=== PATIENT | female | born 1975 | race African-American/Black ===

== ENCOUNTER 2023-08-07 17:34 | Emergency (ER) | payer BC ==
[2023-08-07 17:45] VITALS: BP 135/61; PULSE 84; RESP 18; TEMP 98.6; BMI 32.8
[2023-08-07 19:34] LABS: BASO % 0.6 % (0-2.0); EOS % 3.3 % (0-4.5); HEMATOCRIT 40.3 % (32.4-45.2); HEMOGLOBIN 13.4 GM/dL (10.7-15.3); LYMPH % 47.7 % (8-40); MCH 29.5 pg (25.7-33.7); MCHC 33.3 g/dl (32.0-36.0); MEAN CELL VOLUME 88.4 fl (80-96); MEAN PLT VOLUME 9.2 fl (7.5-11.1); MONO % 7.1 % (3.8-10.2); NEUT % 41.3 % (42.8-82.8); PLATELET COUNT 259 10^3/uL (134-434); RBC 4.56 M/mm3 (3.60-5.2); RDW 14.3 % (11.6-15.6); WHITE BLOOD COUNT 5.4 K/mm3 (4.0-10.0)
[2023-08-07 19:58] LABS: POTASSIUM 4.8 mmol/L (3.5-5.1)
[2023-08-07 20:00] LABS: ALBUMIN 4.1 g/dl (3.4-5.0); CALCIUM 9.5 mg/dL (8.5-10.1)
[2023-08-07 20:03] LABS: CREATININE 0.9 mg/dL (0.55-1.3)
[2023-08-07 20:05] LABS: BILIRUBIN,TOTAL 0.4 mg/dL (0.2-1); TOT PROT 8.3 g/dl (6.4-8.2)
[2023-08-07] MEDS ORDERED: SULFAMETHOXAZOLE/TRIMETHOPRIM 800MG/160MG D.S. TABLET ONE (22:20)
[2023-08-07] MEDS ORDERED: CEPHALEXIN MONOHYDRATE 500 MG CAPSULE (UD) ONE (22:20)
[2023-08-07] MEDS: CEPHALEXIN MONOHYDRATE 500 MG CAPSULE (UD) PO ONE (22:21)
[2023-08-07] MEDS: SULFAMETHOXAZOLE/TRIMETHOPRIM 800MG/160MG D.S. TABLET PO ONE (22:21)
== END 2023-08-07 22:31 | disposition home or self-care (01) ==
LOC: JER 17:34
DX: R10.33 Periumbilical pain (principal); R11.0 Nausea; R51.9 Headache, unspecified
CPT/HCPCS: 36415; 74177-TC; 80053; 83690; 85025; 99285-25; Q9967

== ENCOUNTER 2023-11-24 04:57 | Day surgery (SDC) | payer BC, OTHER ==
[2023-11-20 10:33] VITALS: BMI 33.6
[2023-11-24] MEDS ORDERED: BUPIVACAINE HCL/PF 0.25% (2.5MG/ML) 10 ML VIAL ONE (11:16)
[2023-11-24] MEDS ORDERED: LIDOCAINE HCL/PF 2% SDV 5ML VIAL ONE (11:46)
[2023-11-24] MEDS ORDERED: ROCURONIUM BROMIDE 50 MG/5 ML SYRINGE ONE ×2 (11:46→12:48)
[2023-11-24] MEDS ORDERED: MIDAZOLAM HCL 2 MG/2 ML SINGLE DOSE VIAL ONE (11:46)
[2023-11-24] MEDS: ceFAZolin SODIUM 1 GM VIAL IVPB ONE (12:15)
[2023-11-24] MEDS: BUPIVACAINE HCL/PF 0.25% (2.5MG/ML) 10 ML VIAL IJ ONE (12:24)
[2023-11-24] MEDS ORDERED: DEXAMETHASONE SOD PHOSPHATE 4 MG/1 ML VIAL ONE (12:50)
[2023-11-24] MEDS ORDERED: ONDANSETRON 4 MG/2 ML VIAL ONE ×2 (12:50→17:08)
[2023-11-24] MEDS ORDERED: ceFAZolin SODIUM 1 GM VIAL ONE (12:50)
[2023-11-24] MEDS ORDERED: ACETAMINOPHEN INJECTION 100 ML ONE (13:37)
[2023-11-24] MEDS ORDERED: SUGAMMADEX SODIUM 200 MG/2 ML VIAL ONE (13:50)
[2023-11-24] MEDS: LACTATED RINGERS SOLUTION 1,000 ML IV SCH (16:15)
[2023-11-24] MEDS ORDERED: oxyCODONE HCL 5 MG TABLET ONE (16:19)
[2023-11-24] MEDS: oxyCODONE HCL 5 MG TABLET PO PRN (16:23)
[2023-11-24] MEDS: ONDANSETRON 4 MG/2 ML VIAL IVPUSH PRN (17:07)
[2023-11-24 17:13] VITALS: RESP 20; TEMP 97.2
[2023-11-24 18:16] VITALS: BP 118/65; PULSE 68
== END 2023-11-24 18:02 | disposition home or self-care (01) ==
LOC: JASU-SURG 04:57
PROVIDERS: ATTEND Surgery
PROC: 8E0W0CZ Robotic Assisted Procedure of Trunk Region, Open Approach (ICD-10-PCS; 2023-11-24)
PROC: 0WUF0JZ Supplement Abdominal Wall with Synthetic Substitute, Open Approach (ICD-10-PCS; principal; 2023-11-24 10:00)
DX: K42.0 Umbilical hernia with obstruction, without gangrene (principal)
CPT/HCPCS: 49594; S2900; 86850; 86900; 86901; 94760; C1781; J0131